=== PATIENT | male | born 1985 | race Caucasian/White ===

== ENCOUNTER 2018-04-16 09:46 | Emergency (ER) | payer OTHER, SELFPAY ==
[2018-04-16] MEDS ORDERED: Tetracaine 0.5% OPHTH SOLN/PF 4 ML BOT ONE (10:16)
[2018-04-16] MEDS ORDERED: Gentamicin 80 MG/2 ML VIAL ONE (11:08)
== END 2018-04-16 11:25 | disposition home or self-care (01) ==
LOC: MADERS 09:46
DX: T15.02XA Foreign body in cornea, left eye, initial encounter (principal); H16.002 Unspecified corneal ulcer, left eye; F17.210 Nicotine dependence, cigarettes, uncomplicated
CPT/HCPCS: 99283; J1580

== ENCOUNTER 2020-12-14 08:05 | Emergency (ER) | payer BC, SELFPAY ==
[2020-12-14] MEDS ORDERED: Fluorescein Opthalmic Strip ONE (08:30)
[2020-12-14] MEDS ORDERED: Tetracaine 0.5% PF 4 ML BOT ONE (08:30)
== END 2020-12-14 09:21 | disposition home or self-care (01) ==
LOC: MADERS 08:05
DX: S05.02XA Injury of conjunctiva and corneal abrasion without foreign body, left eye, initial encounter (principal); F17.210 Nicotine dependence, cigarettes, uncomplicated; W22.8XXA Striking against or struck by other objects, initial encounter
CPT/HCPCS: 99283